=== PATIENT | male | born 1990 | race African-American/Black ===

== ENCOUNTER → 2016-09-28 | Emergency (ER) | payer SELFPAY ==
[~2016-09-28] VITALS: Ht 172.7 cm; Wt 72.6 kg
[~2016-09-28] MED LIST: BENZ200C39 PO; IBUPROFEN 600 MG TABLET. PO ONE; OSEL75CA PO
[2016-09-28 22:17] VITALS: BP 131/81
--- NOTE | 2016-09-28 23:00 | PHYS DOC ---
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 Patient states he's been using TheraFlu symptoms. Patient denies any known ill contacts with similar symptoms, antibiotic use, hospitalization or foreign travel past 90 days. Patient states that he is a smoker. He does have a history of asthma. Review of Systems Review of Systems Constitutional: Denies fever or chills [] Eyes: Denies change in visual acuity, redness, or eye pain [] HENT: Denies nasal congestion or sore throat [] Respiratory: Denies cough or shortness of breath [] Cardiovascular: No additional information not addressed in HPI [] GI: Denies abdominal pain, nausea, vomiting, bloody stools or diarrhea [] : Denies dysuria or hematuria [] Musculoskeletal: Denies back pain or joint pain [] Integument: Denies rash or skin lesions [] Neurologic: Denies headache, focal weakness or sensory changes [] Endocrine: Denies polyuria or polydipsia [] Current Medications Current Medications Current Medications Medications (Trade) Dose Ordered Sig/[facility] Start Time Stop Time Status Last Admin Dose Admin Ibuprofen (Motrin) 600 mg 1X ONCE 09/28/16 23:00 09/28/16 23:01 DC 09/28/16 22:57 600 MG Allergies Allergies Allergies Coded Allergies Type Severity Reaction Last Updated Verified No Known Drug Allergies 07/05/13 No Physical Exam Physical Exam Constitutional: Well developed, well nourished, no acute distress, non-toxic appearance. Temperatures 99.9. HENT: Normocephalic, atraumatic, bilateral external ears normal, oropharynx moist, no oral exudates, scant clear rhinorrhea.. Eyes: PERRLA, EOMI, conjunctiva normal, no discharge. [] Neck: Normal range of motion, no tenderness, supple, no stridor. There is no meningismus. There is bilateral anterior and posterior cervical lymphadenopathy. Cardiovascular:Heart rate regular rhythm, no murmur [] Lungs & Thorax: There is no respiratory distress or respiratory fatigue. There is no posturing or sensory muscle use. Lungs are clear to auscultation bilaterally with the exception of scant rales in the left base. Abdomen: Bowel sounds normal, soft, no tenderness, no masses, no pulsatile masses. [] Skin: Warm, dry, no erythema, no rash. [] Back: No tenderness, no CVA tenderness. [] Extremities: No tenderness, no cyanosis, no clubbing, ROM intact, no edema. [] Neurologic: Alert and oriented X 3, normal motor function, normal sensory function, no focal deficits noted. [] Psychologic: Affect normal, judgement normal, mood normal. [] Current Patient Data Vital Signs Vital Signs Date Time Temp Pulse Resp B/P Pulse Ox O2 Delivery O2 Flow Rate FiO2 09/28/16 22:17 99.7 71 17 97 Room Air 99.7 Lab Values Laboratory Tests Test 09/28/16 23:15 Influenza Type A Antigen Negative (NEGATIVE) Influenza Type B Antigen Positive (NEGATIVE) EKG EKG [] Radiology/Procedures Radiology/Procedures PA and lateral chest x-ray was performed with adequate technique. There is no evidence of acute thoracic process/infiltrate/consolidation/pneumothorax. Course & Med Decision Making Course & Med Decision Making Pertinent Labs and Imaging studies reviewed. (See chart for details) [] Dragon Disclaimer Dragon Disclaimer This electronic medical record was generated, in whole or in part, using a voice recognition dictation system. Departure Departure Impression: Primary Impression: Influenza B Disposition: 01 HOME, SELF-CARE Condition: GOOD Referrals: NO PCP (PCP) Patient Instructions: Influenza, Adult, [id number] Additional Instructions: 1. You tested positive for influenza B. Your chest x-ray here today is normal. 2. Take the medication as prescribed. You can also take acetaminophen every 4-6 hours or ibuprofen every 8 hours for fever and body ache. 3. Review the discharge instructions provided for self-care and reasons to return to the emergency department. 4. Follow-up with a primary care doctor within the next 5-7 days area did if you do not have one, then please use the pamphlet provided for assistance in finding one. Scripts Benzonatate 200 Mg Capsule1 Cap PO TID COUGH #21 CAP Prov:GREG ZAMBRANO 09/28/16 Oseltamivir Phosphate (Tamiflu)75 Mg Capsule1 Cap PO BID #10 CAP Prov:GREG ZAMBRANO 09/28/16 GREG ZAMBRANO Sep 28, 2016 23:00
[2016-09-28 23:42] LABS: OBC FLU VALID
--- NOTE | 2016-09-29 07:43 | RAD ---
PA and lateral chest radiographs 09/28/2016. Clinical History: Flulike symptoms for 3 days.. PA and lateral digital radiographs of the chest were obtained. No previous studies are available for comparison. The cardiac and mediastinal silhouettes are within normal limits in size and configuration. No pulmonary infiltrate is seen. No pleural effusion or pneumothorax is noted. The osseous structures are grossly intact. Impression: No radiographic evidence of active cardiopulmonary disease.
== END ==
LOC: ER 21:31
DX: J10.1 Influenza due to other identified influenza virus with other respiratory manifestations (principal); J45.909 Unspecified asthma, uncomplicated; F12.10 Cannabis abuse, uncomplicated; F14.10 Cocaine abuse, uncomplicated
CPT/HCPCS: 71020; 87804; 99285-25

== ENCOUNTER 2017-01-31 20:58 | Emergency (ER) | payer SELFPAY ==
[~2017-01-31] VITALS: Ht 172.7 cm; Wt 72.6 kg
[~2017-01-31 20:58] MED LIST changes: -BENZ200C39 PO; +BENZ200C47 PO; -IBUPROFEN 600 MG TABLET. PO ONE
[2017-01-31 22:00] VITALS: BP 128/74
[2017-01-31] MEDS ORDERED: DIPHTH,PERTUSS(ACELL),TET TOX 0.5 ML DISP.SYRIN. VAX IM ONE ×2 (22:26→22:30)
[2017-01-31] MEDS ORDERED: CEPHALEXIN 250 MG CAPSULE. PO ONE (22:30)
[2017-01-31] MEDS ORDERED: LIDOCAINE 1% / SOD BICARB 8.4% 20 ML VIAL. IJ ONE (22:30)
[2017-01-31] MEDS ORDERED: CEPH-263 PO (22:37)
--- NOTE | 2017-01-31 22:37 | PHYS DOC ---
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 Started 2 days ago. Associated with redness around it. Pain is mild to moderate intermittent and without alleviating or exacerbating factors. Review of systems is negative for fevers chills nausea vomiting diarrhea. All other review of systems is negative unless otherwise noted in history of present illness. ED course: 26-year-old male presenting with a left thigh abscess. Vital signs otherwise unremarkable. Incision and drainage performed. Pertinent inspection of the patient's leg shows associated cellulitis for which the patient is prescribed oral Keflex. The patient was then discharged home in stable condition to follow up with their primary care physician over the next 2-3 days. They were to return if their symptoms worsened or if they were concerned for any reason. [id number] discharge instructions and return precautions were given. Patient's questions were answered to their satisfaction. Patient is comfortable plan. Review of Systems Review of Systems SEE ABOVE. Current Medications Current Medications Current Medications Medications (Trade) Dose Ordered Sig/Matthew Start Time Stop Time Status Last Admin Dose Admin Cephalexin HCl (Keflex) 250 mg 1X ONCE 01/31/17 22:30 01/31/17 22:31 DC 01/31/17 22:30 250 MG Diphtheria/ Tetanus/Acell Pertussis (Boostrix) 0.5 ml STK-MED ONCE 01/31/17 22:26 01/31/17 22:27 DC Lidocaine/Sodium Bicarbonate (Buffered Lidocaine 1%) 20 ml 1X ONCE 01/31/17 22:30 01/31/17 22:31 DC 01/31/17 22:24 20 ML Allergies Allergies Allergies Coded Allergies Type Severity Reaction Last Updated Verified No Known Drug Allergies 07/05/13 No Physical Exam Physical Exam SEE ABOVE Constitutional: Well developed, well nourished, no acute distress, non-toxic appearance. HENT: Normocephalic, atraumatic, bilateral external ears normal, oropharynx moist, no oral exudates, nose normal. [] Eyes: PERRLA, EOMI, conjunctiva normal, no discharge. [] Neck: Normal range of motion, no tenderness, supple, no stridor. [] Cardiovascular:Heart rate regular rhythm Lungs & Thorax: Bilateral breath sounds clear to auscultation Abdomen: Bowel sounds normal, soft, no tenderness, no masses, no pulsatile masses. [] Skin: Warm, dry, no erythema, no rash. Back: No tenderness, no CVA tenderness. [] Extremities: No tenderness, no cyanosis, no clubbing, ROM intact, no edema. No clinical evidence of DVT of the legs. Neurologic: Alert and oriented X 3, normal motor function, normal sensory function, no focal deficits noted. [] Psychologic: Affect normal, judgement normal, mood normal. [] Current Patient Data Vital Signs Vital Signs Date Time Temp Pulse Resp B/P (MAP) Pulse Ox O2 Delivery O2 Flow Rate FiO2 01/31/17 22:00 98.7 83 18 98 Room Air 98.7 EKG EKG [] Radiology/Procedures Radiology/Procedures [] Course & Med Decision Making Course & Med Decision Making Pertinent Labs and Imaging studies reviewed. (See chart for details) [] Dragon Disclaimer Dragon Disclaimer This electronic medical record was generated, in whole or in part, using a voice recognition dictation system. Departure Departure Impression: Primary Impression: Abscess Additional Impression: Cellulitis Disposition: 01 HOME, SELF-CARE Condition: STABLE Referrals: NO PCP (PCP) ADRIEN MORSE MD Patient Instructions: Abscess, Care After, Cellulitis Additional Instructions: Thank you for allowing us to participate in your care today. Followup with your primary care physician in 3 days if your symptoms do not improve. Call your Primary Doctor tomorrow and inform them of your visit today. If you do not have a primary care provider you can ask for a list of our primary care providers. Return to the emergency department you have any new or concerning findings. This should be evaluated by the primary care physician and any necessary consulting services for continued management within a few days after discharge. Return to emergency room if you have any new or concerning symptoms including but not limited to fever, chills, nausea, vomiting, intractable pain, any new rashes, chest pain, shortness of air, uncontrolled bleeding, difficulty breathing, and/or vision loss. Scripts Cephalexin (KEFLEX) 250 Mg Capsule 1 CAP PO QID, #28 CAP Prov: LIZ CAMEJO MD 01/31/17 Incision and Drainage Indication: abscess Procedure: The patient was positioned appropriately. Local anesthesia was buffered lidocaine. An incision was then made over the apex of the lesion and small amount of purulent material was expressed. The drainage cavity was probed. no packing utilized. The patients tetanus status updated as needed. The patient tolerated the procedure well. Complications: none. Problem Qualifiers LIZ CAMEJO MD Jan 31, 2017 22:37
== END 2017-01-31 23:25 | disposition home or self-care (01) ==
LOC: ER 20:58
DX: L02.416 Cutaneous abscess of left lower limb (principal); L03.116 Cellulitis of left lower limb; J45.909 Unspecified asthma, uncomplicated; F17.200 Nicotine dependence, unspecified, uncomplicated
CPT/HCPCS: 10060; 90471; 90715; 99283-25

== ENCOUNTER 2020-01-17 08:47 | Emergency (ER) | payer SELFPAY ==
[~2020-01-17] VITALS: Ht 170.2 cm; Wt 79.0 kg
[~2020-01-17 08:47] MED LIST changes: +CEPH-263 PO
[2020-01-17 09:40] VITALS: BP 119/65
--- NOTE | 2020-01-17 10:17 | PHYS DOC ---
Past Medical History Past Medical History: Asthma Past Surgical History: Other Additional Past Surgical Histo: LEFT THIGH Smoking Status: Current Every Day Smoker Alcohol Use: None Drug Use: Cocaine, Marijuana Social History Narrative: LAST USE LAST NIGHT General Adult EDM: Chief Complaint: ABSCESS HPI: HPI: Patient is a 29 year old male presents with abscess. IT is located on left gluteal fold and first noticed 7 days ago. Patient has been cleaning daily and putting vasoline on it without relief. Pressure and palpation make worse. Pain is sharp and focal without significant radiation. He has been afebrile and denies any drainage and/or trying to drain it himself. he has history of abscesses in similar regions requiring I&D prompting him to seek care at [facility] ED today Review of Systems: Review of Systems: Fourteen system , review of systems has been reviewed. See HPI for pertinent positives and negative responses, other mclean all other systems are negative, non pertinent or non contributory Heart Score: Risk Factors: Risk Factors: DM, Current or recent (<one month) smoker, HTN, HLP, family history of CAD, obesity. Risk Scores: Score 0 - 3: 2.5% MACE over next 6 weeks - Discharge Home Score 4 - 6: 20.3% MACE over next 6 weeks - Admit for Clinical Observation Score 7 - 10: 72.7% MACE over next 6 weeks - Early Invasive Strategies Allergies: Allergies: Allergies Coded Allergies Type Severity Reaction Last Updated Verified No Known Drug Allergies 07/05/13 No Physical Exam: PE: Constitutional: Well developed, well nourished, no acute distress, non-toxic appearance. [] HENT: Normocephalic, atraumatic, bilateral external ears normal, oropharynx moist, no oral exudates, nose normal. [] Eyes: PERRLA, EOMI, conjunctiva normal, no discharge. [] Neck: Normal range of motion, no tenderness, supple, no stridor. [] Cardiovascular:Heart rate regular rhythm, no murmur [] Lungs & Thorax: Bilateral breath sounds clear to auscultation [] Abdomen: Bowel sounds normal, soft, no tenderness, no masses, no pulsatile masses. [] Skin: Warm, dry, no erythema, no rash. Mild indurated region <1 square inche on left superior region of left superior gluteal fold. No head or palpable fluctuance appreciated, no streaking, erythema or warmth [] Back: No tenderness, no CVA tenderness. [] Extremities: No tenderness, no cyanosis, no clubbing, ROM intact, no edema. [] Neurologic: Alert and oriented X 3, normal motor function, normal sensory function, no focal deficits noted. [] Psychologic: Affect normal, judgement normal, mood normal. [] Current Patient Data: Vital Signs: Vital Signs Date Time Temp Pulse Resp B/P (MAP) Pulse Ox O2 Delivery O2 Flow Rate FiO2 01/17/20 09:17 98.8 81 14 133/86 (102) 98 Room Air 98.8 EKG: EKG: [] Radiology/Procedures: Radiology/Procedures: [] Course & Med Decision Making: Course & Med Decision Making Presentation most consistent with developing abscess Given History, Exam, and Workup I have low suspicion for Cellulitis, Necrotizing Fasciitis, Pyomyositis, Sporotrichosis, Osteomyelitis or other emergent problem as a cause for this presentation. Hemodynamically stable and afebrile. No indication for antibiotics and/or need for I&D today Discussed this with patient with good understanding. Discussed supportive care required going forward such as warm baths, NSAID/Tylenol for PRN pain control, and general hygiene Strict return precautions discussed with good understanding by patient, all questions and concerns addressed prior to discharge PAtient has no PCP, given a list on discharge to call and follow-up with Diana Disclaimer: Diana Disclaimer: This electronic medical record was generated, in whole or in part, using a voice recognition dictation system. Departure Departure Impression: Primary Impression: Abscess Disposition: 01 HOME, SELF-CARE Condition: STABLE Referrals: NO PCP (PCP) Patient Instructions: Abscess, Perineal Additional Instructions: As discussed prior to ED departure, please establish care with primary care physician of your choice listed below ------- You were evaluated in the Emergency Department for an abscess. You should soak the area in warm water for 20-30 minutes 3-4 times daily. Contact your doctor when the abscess comes to a head (looks like it is almost ready to pop open) and needs to be drained. Please keep the areas surrounding the abscess clean and dry. Take the antibiotics prescribed to you in full as directed. Please follow up with your primary care physician as needed. If you do not have a primary doctor, you can call your insurance company to find one. If you do not have insurance, you can go to the finance/registration department for more assistance. Return to the Emergency Department if you experience worsening pain, persistent fevers greater than 100.4, an increase in area of redness, increased tend erness/warmth around the abscess, foul smelling discharge from the abscess, [facility] [address] [place] [address] [facility] [address] [place] [address] [facility] [address] [place] [address] [facility] [address] [place] [address] [facility] [address] [place] [address] [address] [place] [address] [address] [place] [address] [facility] [place] [address] [place] [address] [facility] [address] [place] [address] [facility] [address] [place] [address] Justicifation of Admission Dx: Justifications for Admission: Justification of Admission Dx: N/A RICHARD FIORE DO Jan 17, 2020 10:17
== END 2020-01-17 10:29 | disposition home or self-care (01) ==
LOC: ER 08:47
DX: L02.31 Cutaneous abscess of buttock (principal); J45.909 Unspecified asthma, uncomplicated; F17.200 Nicotine dependence, unspecified, uncomplicated
CPT/HCPCS: 99282